=== PATIENT | male | born 1995 | race Caucasian/White ===

== ENCOUNTER 2021-04-07 08:27 | Outpatient (CLI) | payer BC, OTHER ==
[2021-04-07] MEDS ORDERED: ESCI10TA PO (13:38)
[2021-04-07] MEDS ORDERED: AMPH30TA2 PO (13:38)
== END 2021-04-07 13:46 | disposition home or self-care (01) ==
LOC: PREOP 08:27
PROVIDERS: ATTEND Surgery
DX: Z01.818 Encounter for other preprocedural examination (principal)

== ENCOUNTER 2021-04-14 08:45 | Day surgery (SDC) | payer BC, OTHER ==
[~2021-04-14] VITALS: Ht 190.5 cm; Wt 90.8 kg
[2021-04-14] VITALS (10 sets, daily range): BP systolic 103–145; BP diastolic 48–88
[~2021-04-14 08:45] MED LIST: AMPH30TA2 PO; ESCI10TA PO
--- OUTSIDE RECORDS SUMMARY | 2021-04-14 08:49 | XMS REPORT | Clinical Summary ---
Author Author [facility] Organization [facility] Address Unknown Phone Unavailable Care Team Providers Care Privacy Manager Name Role Phone PCP Unavailable Allergies Not on File Medications Not on file Active Problems Not on file Social History Date Tobacco Use Types Packs/Day Years Used Never Assessed Sex Assigned at Date Recorded Not on file Last Filed Vital Signs Not on file Plan of Treatment Not on file Results Not on filefrom Last 3 Months
[2021-04-14] MEDS ORDERED: ceFAZolin 2 GM IV Premixed 50 ML IV ONE (09:00)
[2021-04-14] MEDS ORDERED: HYDR-3817 PO (09:10)
--- NOTE | 2021-04-14 09:10 | Discharge Inst-Surgical ---
D/C Lap Instructions-KIDO Reconcile Patient Problems Problems Reviewed?: Yes New, Converted, or Re-Newed RX: RX on Chart Follow Up Appt in 2 weeks Activity as tolerated No driving for 24 hours No driving while on pain medications Incentive Spirometry use every 2 hours while awake Regular Diet Symptoms to Report: Fever over 101 degree F, Nausea/Vomiting Infection Signs and Symptoms to report: Increased redness, Foul odor of wound, Increased drainage Bathing instructions: May shower Operative Area Clean/Dry; Keep incision clean/dry If any problems/questions: Contact your physician or go to Emergency Room JERAMIE GLASS APRN Apr 14, 2021 09:10
--- NOTE | 2021-04-14 09:11 | Progress Note-Pre Operative ---
Pre-Operative Progress Note H&P Reviewed The H&P was reviewed, patient examined and no changes noted. Date Seen by Provider: Apr 14, 2021 Time Seen by Provider: 09:00 Date H&P Reviewed: Apr 14, 2021 Time H&P Reviewed: 08:30 Pre-Operative Diagnosis: Pilonidal cyst JERAMIE GLASS APRN Apr 14, 2021 09:11
[2021-04-14] MEDS: LACTATED RINGERS 1,000 ML IV PRN ×2 (09:12→11:40)
[2021-04-14] MEDS ORDERED: ACETAMINOPHEN 325 MG TABLET PO PRN (09:15)
[2021-04-14] MEDS ORDERED: HYDROcodone/APAP 5 MG/325 MG (LORTAB) TAB PO ONE (09:15)
[2021-04-14] MEDS ORDERED: ONDANSETRON 4 MG/2 ML (SDV) Z0FRAN IVP PRN ×2 (09:15→12:30)
[2021-04-14] MEDS ORDERED: morphine INJ 10 MG/ML 1ML (SYR OR VIAL) IVP PRN (09:15)
[2021-04-14] MEDS ORDERED: LIDOCAINE/EPI 1%-1:200,000 (XYLOCAINE) 30 ML VIAL ONE (10:09)
[2021-04-14] MEDS ORDERED: fentaNYL INJ 100 MCG/2 ML AMP ONE (10:33)
[2021-04-14] MEDS ORDERED: NEOSTIGMINE 3 MG/3 ML VIAL ONE (10:33)
[2021-04-14] MEDS ORDERED: proPOfol 200 MG/20 ML (DIPRIVAN) VIAL IV ONE (10:33)
[2021-04-14] MEDS ORDERED: ROCURONIUM 50 MG/5 ML (ZEMURON) VIAL IV ONE (10:33)
[2021-04-14] MEDS ORDERED: ONDANSETRON 4 MG/2 ML (SDV) Z0FRAN ONE (10:33)
[2021-04-14] MEDS ORDERED: MIDAZOLAM 2 MG/2 ML (VERSED) VIAL ONE (10:33)
[2021-04-14] MEDS ORDERED: GLYCOPYRROLATE 0.2 MG/ML (ROBINUL) 2 ML VIAL ONE (10:33)
[2021-04-14] MEDS ORDERED: LIDOCAINE PF 2% 5 ML (XYLOCAINE) VIAL ONE (10:33)
[2021-04-14] MEDS ORDERED: SEVOFLURANE (ULTANE) 15 ML INHAL SOLN ONE ×2 (11:59→12:06)
--- NOTE | 2021-04-14 12:02 | Progress Note-Post Operative ---
Post-Operative Progess Note Surgeon (s)/Dock Operations Supervisor (s) Surgeon CELSA GANDARA MD Dock Operations Supervisor: daily darnell SOFTWARE PROGRAM MANAGER Pre-Operative Diagnosis Pilonidal cyst Post-Operative Diagnosis same(5x4cm) Procedure & Operative Findings Date of Procedure 04/14/21 Procedure Performed/Findings excision pilonidal cyst with complex flap closure(5x4cm). Anesthesia Type get Estimated Blood Loss Estimated blood loss (mL): minimal Specimens/Packing Specimens Removed pilonidal cyst CELSA GANDARA MD Apr 14, 2021 12:02
[2021-04-14] MEDS ORDERED: HYDROmorphone 2 MG/ML VIAL (DILAUDID) IV ONE (12:30)
[2021-04-14] MEDS ORDERED: morphine INJ 10 MG/ML 1ML (SYR OR VIAL) IVP ONE (12:30)
[2021-04-14] MEDS ORDERED: morphine INJ 10 MG/ML 1ML (SYR OR VIAL) ONE (12:30)
--- NOTE | 2021-04-14 13:34 | Anesthesia-General Post-Op ---
General Patient Condition Mental Status/LOC: Same as Preop Cardiovascular: Satisfactory Nausea/Vomiting: Absent Respiratory: Satisfactory Pain: Controlled Complications: Absent Post Op Complications Complications None Follow Up Care/Instructions Patient Instructions None needed. Anesthesia/Patient Condition Patient Condition Patient is doing well, no complaints, stable vital signs, no apparent adverse anesthesia problems. JR PERALTA DO Apr 14, 2021 13:34
--- NOTE | 2021-04-15 08:55 | OPERATIVE REPORT ---
DATE OF SERVICE: 04/14/2021 PREOPERATIVE DIAGNOSIS: Symptomatic pilonidal cyst. POSTOPERATIVE DIAGNOSIS: Symptomatic pilonidal cyst. Dimensions of excision 5 x 4 cm. PROCEDURE: Excision pilonidal cyst 5 x 4 cm with a complex flap closure, 5 x 4's cm. SURGEON: Celsa Gandara MD. HEAD TURBINE OPERATOR: Brian Lynch APRN. ANESTHESIA: General endotracheal. ESTIMATED BLOOD LOSS: Minimal. FINDINGS: Pilonidal cyst with multiple sinus tracts. DISPOSITION: The patient tolerated the procedure well. INDICATIONS: The patient is a 26-year-old male who was seen for pain, swelling, drainage as well as itching along the gluteal cleft for the past year. He reports purulent drainage as well as blood tinged clear drainage. He was examined and found to have a pilonidal cyst. He reports that he has had multiple episodes of abscess formation requiring antibiotics as well. DESCRIPTION OF PROCEDURE: The patient was brought to the operating room and after general endotracheal intubation, the patient was placed in prone position and the buttocks retracted laterally with tape and the perineum was prepped and draped in standard surgical fashion. We then probed the cyst, which did track right lateral as well as inferiorly. We then measured off these areas of sinus tracts, which encompassed an area approximately 5 x 4 cm. The skin was then opened using a 15 blade. We then proceeded with an excision of the entirety of the pilonidal cyst as well as any chronically infected tissue. This was done by using electrocautery to the layer until the coccyx was identified. Good hemostasis was observed. We then proceeded with a complex flap closure creating myocutaneous flaps laterally using electrocautery. The myofascial flap was then reapproximated using 2-0 Vicryl interrupted sutures. The subcutaneous tissue was then reapproximated using 2-0 Vicryl interrupted sutures. The skin was closed in a cleft off midline towards the right buttock using interrupted 3-0 nylon sutures. Wound was then cleaned and covered with 4 x 4 gauze followed by ABD pad followed by mesh shorts. The patient tolerated the procedure well. We will start IV and oral pain medication as well as a clear liquid diet. Once he is tolerating clears, has good pain control with oral pain medications, ambulating well, we will discharge him home. He will be instructed to do no heavy lifting or exertion for the next six weeks as well. Job ID: [id number] DocumentID: [id number] Dictated Date: 04/14/2021 12:10:02 Genetic Counselor Date: 04/14/2021 15:22:46 Dictated By: CELSA GANDARA MD
== END 2021-04-14 14:38 ==
LOC: SDC 08:45
PROVIDERS: ATTEND Surgery
DX: L05.91 Pilonidal cyst without abscess (principal); F41.9 Anxiety disorder, unspecified; F98.8 Other specified behavioral and emotional disorders with onset usually occurring in childhood and adolescence; Z79.899 Other long term (current) drug therapy
CPT/HCPCS: 87081

== ENCOUNTER 2022-01-08 17:12 | Emergency (ER) | payer BC ==
[~2022-01-08] VITALS: Ht 190.5 cm; Wt 92.9 kg
[~2022-01-08 17:12] MED LIST changes: +HYDR-3817 PO
[2022-01-08] MEDS ORDERED: KETOROLAC 30 MG/ML VIAL IVP STA (17:55)
[2022-01-08] MEDS ORDERED: NS IV 1000 ML 1,000 ML IV SCH (18:00)
[2022-01-08 18:02] LABS: BASOPHILS % (AUTO) 0 % (0-10); EOSINOPHILS % (AUTO) 0 % (0-10); HEMATOCRIT 48 % (40-54); HEMOGLOBIN 16.8 g/dL (13.3-17.7); LYMPHOCYTES # (AUTO) 0.8 10^3/uL (1.0-4.0); LYMPHOCYTES % (AUTO) 8 % (12-44); MEAN CORPUSCULAR HEMOGLOBIN 30 pg (25-34); MEAN CORPUSCULAR HGB CONC 35 g/dL (32-36); MEAN CORPUSCULAR VOLUME 84 fL (80-99); MEAN PLATELET VOLUME 10.4 fL (9.0-12.2); MONOCYTES # (AUTO) 0.8 10^3/uL (0.0-1.0); MONOCYTES % (AUTO) 8 % (0-12); NEUTROPHILS # (AUTO) 9.2 10^3/uL (1.8-7.8); NEUTROPHILS % (AUTO) 84 % (42-75); PLATELET COUNT 193 10^3/uL (130-400); WHITE BLOOD COUNT 10.9 10^3/uL (4.3-11.0)
[2022-01-08 18:15] LABS: ALBUMIN 4.5 GM/DL (3.2-4.5)
[2022-01-08 18:16] LABS: POTASSIUM 3.9 MMOL/L (3.6-5.0)
[2022-01-08 18:17] LABS: CALCIUM 9.3 MG/DL (8.5-10.1)
[2022-01-08 18:18] LABS: TOTAL PROTEIN 7.7 GM/DL (6.4-8.2)
[2022-01-08 18:20] LABS: BILIRUBIN,TOTAL 0.8 MG/DL (0.1-1.0)
[2022-01-08 18:22] LABS: BILIRUBIN,URINE NEGATIVE (NEGATIVE); CLARITY,URINE CLEAR; COLOR,URINE YELLOW; GLUCOSE, URINE (UA) NEGATIVE (NEGATIVE); KETONES,URINE NEGATIVE (NEGATIVE); LEUKOCYTE ESTERASE ,URINE 2+ (NEGATIVE); NITRITE,URINE NEGATIVE (NEGATIVE); PROTEIN,URINE NEGATIVE (NEGATIVE)
[2022-01-08] MEDS ORDERED: TAMSULOSIN 0.4 MG (FLOMAX) CAP PO STA (18:24)
[2022-01-08 18:29] LABS: BACTERIA,URINE TRACE /HPF; SQUAMOUS EPITHELIAL CELL,UR RARE /HPF
[2022-01-08 18:40] LABS: LYMPHOCYTES % (MANUAL) 6 %; MONOCYTES % (MANUAL) 5 %; NEUTROPHILS % (MANUAL) 86 %; RBC MORPH NORMAL; REACTIVE LYMPHOCYTES 3 %
--- NOTE | 2022-01-08 18:46 | ED GU-Male ---
General Chief Complaint: Abdominal/GI Problems Stated Complaint: LLQ PAIN,NAUSEA/FATIGUE Nursing Triage Note: PT AMB TO RM 05 WITH GIRLFRIEND. PT STATED THAT HE GOT BACK PAIN LAST NIGHT AND ABD PAIN THIS MORNING. PT TOOK TYLENOL AT 1630 TODAY. History of Present Illness Date Seen by Provider: Jan 08, 2022 Time Seen by Provider: 17:20 Initial Comments 26 year old male presents for low back pain that started yesterday and now is causing suprapubic pain. He denies nausea or vomiting, but less appetite and minimal fluid intake today. No history or kidney stones. Denies hematuria. Timing/Duration: yesterday Severity/Quality: moderate (11/06) Location: right flank, left flank, generalized flank Radiation: none Associated Symptoms: abdominal pain, dysuria; No loss of bladder control; lower back pain Allergies and Home Medications Allergies Coded Allergies: No Known Drug Allergies (Unverified , 04/14/21) Patient Home Medication List Home Medication List Reviewed: Yes Dextroamphetamine/Amphetamine (Adderall 30 mg Tablet) 30 Mg Tablet, 30 MG PO BID, (Reported) Entered as Reported by: JORDY FAY on 04/07/21 1338 Escitalopram Oxalate (Lexapro) Unknown Strength Tablet, Unknown Dose PO DAILY, (Reported) Entered as Reported by: JORDY FAY on 04/07/21 1338 Hydrocodone/Acetaminophen (Hydrocodone-Acetamin 7.5-325) 1 Each Tablet, 1 EACH PO Q4H PRN for PAIN-BREAKTHROUGH Prescribed by: JERAMIE GLASS on 04/14/21 0910 Sulfamethoxazole/Trimethoprim (Bactrim Ds Tablet) 1 Each Tablet, 1 EACH PO BID Prescribed by: BERNARDA EDGE on 01/08/22 1930 Review of Systems Review of Systems Constitutional: no symptoms reported, see HPI Genitourinary: see HPI, dysuria, flank pain All Other Systemes Reviewed Negative Unless Noted: Yes Past Agygylt-Phrfgb-Krlgmp Hx Patient Social History Tobacco Use?: No Substance use?: No Alcohol Use?: Yes Alcohol Frequency: Once in a while Immunizations Up To Date Influenza Vaccine Up-to-Date: No; Not Current First/Initial COVID19 Vaccinat: JULY 2020 Second COVID19 Vaccination Olman: JULY 2020 Third COVID19 Vaccination Date: JULY 2020 Seasonal Allergies Seasonal Allergies: No Past Medical History Surgeries: Yes (WISDOM TEETH, TONSILLECTOMY) Tonsillectomy Respiratory: No Currently Using CPAP: No Currently Using BIPAP: No Cardiac: Yes (BORDERLINE HYPERTENSION AT WORK PHYSICAL) Hypertension Neurological: No Genitourinary: No Gastrointestinal: No Musculoskeletal: No Endocrine: No HEENT: No Cancer: No Psychosocial: Yes Anxiety Integumentary: Yes (CYST) Recent Skin Changes Blood Disorders: No Adverse Reaction/Blood Tranf: No Family Medical History Reviewed Nursing Family Hx Physical Exam Vital Signs Vital Signs - First Documented 01/08/22 17:20 Temp 37.8 Pulse 103 Resp 16 B/P (MAP) 140/90 (107) Pulse Ox 96 O2 Delivery Room Air Capillary Refill : Less Than 3 Seconds Height, Weight, BMI Height: '" Weight: lbs. oz. kg; 25.00 BMI Method: General Appearance: WD/WN, no apparent distress Cardiovascular: normal peripheral pulses, regular rate, rhythm Respiratory: chest non-tender, lungs clear, normal breath sounds Gastrointestinal: normal bowel sounds, soft; No distended, No guarding, No rebound; tenderness (suprapubic) Neurologic/Psychiatric: no motor/sensory deficits, alert, normal mood/affect, oriented x 3 Skin: normal color, warm/dry Progress/Results/Core Measures Suspected Sepsis SIRS Temperature: Pulse: 103 Respiratory Rate: 16 Laboratory Tests 01/08/22 17:52: White Blood Count 10.9 Blood Pressure 140 /90 Mean: 107 Laboratory Tests 01/08/22 17:52: Creatinine 1.00, Platelet Count 193, Total Bilirubin 0.8 Results/Orders Lab Results Laboratory Tests Test 01/08/22 17:52 01/08/22 18:12 Range/Units White Blood Count 10.9 4.3-11.0 10^3/uL Red Blood Count 5.69 H 4.30-5.52 10^6/uL Hemoglobin 16.8 13.3-17.7 g/dL Hematocrit 48 40-54 % Mean Corpuscular Volume 84 80-99 fL Mean Corpuscular Hemoglobin 30 25-34 pg Mean Corpuscular Hemoglobin Concent 35 32-36 g/dL Red Cell Distribution Width 11.6 10.0-14.5 % Platelet Count 193 130-400 10^3/uL Mean Platelet Volume 10.4 9.0-12.2 fL Immature Granulocyte % (Auto) 0 % Neutrophils (%) (Auto) 84 H 42-75 % Lymphocytes (%) (Auto) 8 L 12-44 % Monocytes (%) (Auto) 8 0-12 % Eosinophils (%) (Auto) 0 0-10 % Basophils (%) (Auto) 0 0-10 % Neutrophils # (Auto) 9.2 H 1.8-7.8 10^3/uL Lymphocytes # (Auto) 0.8 L 1.0-4.0 10^3/uL Monocytes # (Auto) 0.8 0.0-1.0 10^3/uL Eosinophils # (Auto) 0.0 0.0-0.3 10^3/uL Basophils # (Auto) 0.0 0.0-0.1 10^3/uL Immature Granulocyte # (Auto) 0.0 0.0-0.1 10^3/uL Neutrophils % (Manual) 86 % Lymphocytes % (Manual) 6 % Monocytes % (Manual) 5 % Reactive Lymphocytes 3 % Blood Morphology Comment NORMAL Sodium Level 137 135-145 MMOL/L Potassium Level 3.9 3.6-5.0 MMOL/L Chloride Level 103 98-107 MMOL/L Carbon Dioxide Level 21 21-32 MMOL/L Anion Gap 13 5-14 MMOL/L Blood Urea Nitrogen 8 7-18 MG/DL Creatinine 1.00 0.60-1.30 MG/DL Estimat Glomerular Filtration Rate 108 BUN/Creatinine Ratio 8 Glucose Level 110 H 70-105 MG/DL Calcium Level 9.3 8.5-10.1 MG/DL Corrected Calcium 8.9 8.5-10.1 MG/DL Total Bilirubin 0.8 0.1-1.0 MG/DL Aspartate Amino Transf (AST/SGOT) 18 5-34 U/L Alanine Aminotransferase (ALT/SGPT) 22 0-55 U/L Alkaline Phosphatase 60 40-136 U/L Total Protein 7.7 6.4-8.2 GM/DL Albumin 4.5 3.2-4.5 GM/DL Urine Color YELLOW Urine Clarity CLEAR Urine pH 7.0 5-9 Urine Specific Mcdowell <=1.005 1.016-1.022 Urine Protein NEGATIVE NEGATIVE Urine Glucose (UA) NEGATIVE NEGATIVE Urine Ketones NEGATIVE NEGATIVE Urine Nitrite NEGATIVE NEGATIVE Urine Bilirubin NEGATIVE NEGATIVE Urine Urobilinogen 0.2 < = 1.0 MG/DL Urine Leukocyte Esterase 2+ H NEGATIVE Urine RBC (Auto) NEGATIVE NEGATIVE Urine RBC NONE /HPF Urine WBC 5-10 H /HPF Urine Squamous Epithelial Cells RARE /HPF Urine Crystals NONE /LPF Urine Bacteria TRACE /HPF Urine Casts NONE /LPF Urine Mucus NEGATIVE /LPF Urine Culture Indicated YES My Orders Orders - BERNARDA EDGE MELISSA Ua Culture If Indicated (01/08/22 17:22) Ketorolac Injection (Toradol Injection) (01/08/22 17:55) Ed Iv/Invasive Line Start (01/08/22 17:55) Ns Iv 1000 Ml (Sodium Chloride 0.9%) (01/08/22 18:00) Cbc With Automated Diff (01/08/22 17:56) Comprehensive Metabolic Panel (01/08/22 17:56) Manual Differential (01/08/22 17:52) Ct Abd/Pelvis Wo(Kidney Stone) (01/08/22 18:24) Tamsulosin Capsule (Flomax Capsule) (01/08/22 18:24) Urine Culture (01/08/22 18:12) Rx-Trimeth/Sulfameth Ds Tab (Rx-Bactrim/ (01/08/22 19:21) Vital Signs/I&O 01/08/22 17:20 Temp 37.8 Pulse 103 Resp 16 B/P (MAP) 140/90 (107) Pulse Ox 96 O2 Delivery Room Air Capillary Refill : Less Than 3 Seconds Blood Pressure Mean: 107 Progress Note : Time: 17:20 Progress Note Patient seen and evaluated, will give 1 L normal saline, labs, Toradol 30 mg IV 1810 patient reports improvement in pain currently rating a 3/10 after receiving the Toradol. Will obtain CT. Voided a small amount, bladder scan 6 ml post void. Doesn't feel like he can empty his bladder. Will give Flomax. 1910 CT results discussed with the patient, no history of appendectomy or recent URI. Temp 98.3. Urinated and felt like he could fully empty his bladder. No further pain. Discharge instructions and return precautions reviewed with the patient. All questions answered. Diagnostic Imaging Diagonstic Imaging: CT Plain Films/CT/US/NM/MRI: abdomen, pelvis Comments NAME: DEBBIE HIDALGO MED REC#: [id number] PT STATUS: REG ER : 1995 PHYSICIAN: BERNARDA EDGE ADMIT DATE: 01/08/22/ER Draft Date of Exam:01/08/22 CT ABD/PELVIS WO(KIDNEY STONE) INDICATION: Abdominal pain and back pain. TECHNIQUE: Multiple contiguous axial images were obtained through the abdomen and pelvis without the use of intravenous contrast. Auto Exposure Controls were utilized during the CT exam to meet ALARA standards for radiation dose reduction. COMPARISON: There is no previous study for comparison. FINDINGS: Visualized portions of the lung bases are clear. There are no pleural fluid collections. There is no free intraperitoneal air. The liver and gallbladder appear normal. The spleen, adrenals and pancreas appear normal. The kidneys, bilaterally, are unremarkable. There is no retroperitoneal mass. There is no ascites or abnormal fluid collection. There is no overt bowel obstruction. There is no pelvic lymphadenopathy. There is some fat stranding about the right colon compatible with nonspecific colitis. There are a few scattered borderline size nodes in the fat adjacent to the right colon, which may represent mesenteric adenitis. Appendix is not visualized with certainty. IMPRESSION: There are inflammatory changes in the fat about the cecum compatible with a nonspecific colitis. There are some mildly prominent nodes in the pericecal fat compatible with mesenteric adenitis. Appendix is not visualized with certainty. There is no abscess or free fluid. Dictated on workstation # [id number] Dict: 01/08/22 184 Trans: 01/08/221855 [facility] [id number] Interpreted by: RONAL REDD MD Electronically signed by: Reviewed: Reviewed by Me Departure Impression Primary Impression: Colitis Additional Impressions: Mesenteric adenitis UTI (urinary tract infection) Qualified Codes: N30.01 - Acute cystitis with hematuria Disposition: HOME, SELF-CARE Condition: Improved Departure-Patient Inst. Decision time for Depature: 19:00 Referrals: ESTEPHANIE SOUTH DO (PCP/Family) Primary Care Physician Patient Instructions: Colitis (DC), Urinary Tract Infection, Adult (DC) Add. Discharge Instructions: Push fluids, bland diet as tolerated. Alternate Tylenol 650 mg and Ibuprofen 600 mg every 4 hours for pain or fever. Take antibiotics, as prescribed. Follow up with Dr. South, if symptoms are not improving or worsen. Return to the emergency dept for new/urgent healthcare problems. All discharge instructions reviewed with patient and/or family. Voiced understanding. Scripts Sulfamethoxazole/Trimethoprim (Bactrim Ds Tablet) 1 Each Tablet 1 EACH PO BID, #10 TAB 0 Refills Prov: BERNARDA EDGE 01/08/22 BERNARDA EDGE Jan 08, 2022 18:46
--- NOTE | 2022-01-08 18:58 | Diagnostic Imaging Report ---
INDICATION: Abdominal pain and back pain. TECHNIQUE: Multiple contiguous axial images were obtained through the abdomen and pelvis without the use of intravenous contrast. Auto Exposure Controls were utilized during the CT exam to meet ALARA standards for radiation dose reduction. COMPARISON: There is no previous study for comparison. FINDINGS: Visualized portions of the lung bases are clear. There are no pleural fluid collections. There is no free intraperitoneal air. The liver and gallbladder appear normal. The spleen, adrenals and pancreas appear normal. The kidneys, bilaterally, are unremarkable. There is no retroperitoneal mass. There is no ascites or abnormal fluid collection. There is no overt bowel obstruction. There is no pelvic lymphadenopathy. There is some fat stranding about the right colon compatible with nonspecific colitis. There are a few scattered borderline size nodes in the fat adjacent to the right colon, which may represent mesenteric adenitis. Appendix is not visualized with certainty. IMPRESSION: There are inflammatory changes in the fat about the cecum compatible with a nonspecific colitis. There are some mildly prominent nodes in the pericecal fat compatible with mesenteric adenitis. Appendix is not visualized with certainty. There is no abscess or free fluid. Dictated by: Dictated on workstation # [id number]
[2022-01-08] MEDS ORDERED: RX-TRIMETH/SULFA. 160-800 MG (BACTRIM DS) TAB PPK#2 PO STA (19:21)
[2022-01-08] MEDS ORDERED: SULF1TAB38 PO (19:30)
[2022-01-08 19:32] VITALS: BP 129/83
== END 2022-01-08 19:40 | disposition home or self-care (01) ==
LOC: EDUNIT# 17:12 → ER 17:14
DX: K52.9 Noninfective gastroenteritis and colitis, unspecified (principal); I88.0 Nonspecific mesenteric lymphadenitis; N39.0 Urinary tract infection, site not specified
CPT/HCPCS: 36415; 74176; 80053; 81000; 85007; 85027; 87077; 87088